=== PATIENT | male | born 1960 | race Caucasian/White ===

== ENCOUNTER 2019-08-20 07:00 | Outpatient (RCR) | payer OTHER, SELFPAY ==
--- NOTE | 2019-07-15 18:59 | HP.PTEVAL ---
Patient's Visit Information MISBAH WAHL is a 59 year old M referred to Physical Therapy by PING WHITMAN with a diagnosis of R RC repair 03/14/19. Date of Evaluation: 07/15/19 Physical Therapist: Mark Harvey, DPT, OCS, CSCS - Visit Plan Frequency: 3x /Week Duration: 4-6 Weeks Plan: 3x/week for 4 weeks for. 1. supra, infraspinatus strength ecc and concentric and shoulder stabs on table. 2. General shoulder strength deltoid and elevation. 3. FES to supra /infra each session please. - Subjective Findings: RCR on March 02 did repair adn all 4 tendons detached. This was chronic but had hockey injury 20 years ago and original repair 15 years ago. Sling for 6 weeks. ROM exercises he is doing at home. Started strengthening ex with 1-2# weights at home a month ago. (flexion, ext rotation, [place].) Pain level is 0 at rest. Certain movements 1/10 reaching across body. Sleep is fine. Works at a [employer]. Light duty right now and uses L hand alot. Doctor told him to let pain be his guide.. Hobbies: playing hockey, doctor wanted him to wait until beginning of August. Basic ADLs are Ok. Wants to make sure he is doing strengthening properly. - Pain R pain Pain Intensity (Out of 10): 0 Pain Intensity Range: 0, 2 - Objective Good posture. full AROM without pain. L shoulder elbow wrist AROM WNL and strength at 4+-5/5. reflexes B bi and tri 2/3. Sensation WNL B UE to gross light touch. R elbow and wrist and hand ROM WFL adn 4+/5 strength. R shoulder ext rotation AROM is 5 degrees and compensates by abducting shoulder. IR is WNL flexion is 150 but slow and hard at 90-120 randall. Strength ext rotation is 2/5 adn compensates with scap elevation and retraction on R. IR 4-/5. Pt has full PROM Ext rotation and IR but unable to hold in this position actively. Walking and trasnfers are normal. Lack of ext rotation strength is issue, gets 45 degrees with estim functional but unable to hold this on his own. - Goals Goal 1:: ext rotation actively to 40 degreees and elevation with LLA without hesitation. Goal Time Frame: 4-6 Weeks Goal 2:: Pt feel 75% back to normal elevation of R UE Goal Time Frame: 4-6 Weeks Goal 3:: Patient ready to return to hockey skating. Goal Time Frame: 6-8 Weeks Goal 4:: I approp HEP to minimize future problems and max function. Goal Time Frame: 4-6 Weeks - Rehabilitation Potential Physical Therapy Diagnosis: R shuolder dysfunction Rehabilitation Potential: Questionable - Anticipated Interventions Patient/Client Instruction: Educate patient on: Condition, Plan of Care For the Purpose of:: To increase ROM, To improve muscle performance and motor function, To increase tolerance to activity/condition/position Therapeutic Exercise to Include: Strength training, Postural training, Scapular Strength/Stabilization For the Purpose of:: To improve muscle performance and motor function, To increase tolerance to activity/condition/position, To improve ability of physical actions for home/community/work/leisure Thank you for the opportunity to evaluate your patient. For Medicare and Medicare HMO plans, please review the plan of care and approve it. It will need to be FAXED BACK to us at [phone] for Medicare purposes. For Medicare only, by signing this I certify the plan of care. Please let me know if there are questions or concerns regarding this plan of care. Physician Signature: Date:
--- NOTE | 2019-08-20 08:03 | HP.PTDCSUM ---
HP - PT D/C Summary It has been my pleasure to treat MISBAH WAHL under orders from PING WHITMAN, for the diagnosis of R RC repair 03/14/19 for a total of 13 visit(s). Discharge Date: Please see the following information for a summary of their discharge status. - Subjective Subjective: Feels better with external rotation. Has more strength but still feels weak. Pulling is easy and lifting still challenging but improved. To doctor in 3 weeks. Would be convenient to try this at home. - Pain R pain Pain Intensity (Out of 10): 0 - Overall Improvement % Improvement: 50 - Objective Objective/Function: 142 flexion L and 110 abd, ext rotation, 32 ext rotation. Still very weak 3- on ext rotation, 4 IR, 4- flexion and 3+. MUCH BETTER MOVEMENT OVERALL AND SLOWLY STRONGER. - Goals Goal 1:: ext rotation actively to 40 degreees and elevation with LLA without hesitation. Goal Progress: Progressing Goal 2:: Pt feel 75% back to normal elevation of R UE Goal Progress: Progressing Goal 3:: Patient ready to return to hockey skating. Goal Progress: NOT YET Goal 4:: I approp HEP to minimize future problems and max function. Goal Progress: Goal Met - Plan Plan: D/C - D/C Information If there are questions or concerns regarding this patient's physical therapy, please feel free to call me at [phone]. Thank you for the referral of this patient. Sincerely, Mark Harvey, DPT, OCS, CSCS
== END 2019-08-20 19:00 | disposition home or self-care (01) ==
LOC: PT 07:00
PROVIDERS: Family Provider Family Medicine; PCP Family Medicine
DX: Z98.890 Other specified postprocedural states (principal)
CPT/HCPCS: 97014; 97110; 97161; 97530; G0283